=== PATIENT | female | born 1975 | race Caucasian/White ===

== ENCOUNTER 2019-09-08 23:59 | Emergency (ER) | payer MEDICAID ==
[~2019-09-08] VITALS: Ht 157.5 cm; Wt 66.7 kg
[2019-09-09 00:15] VITALS: BP_SYST 101
[2019-09-09] MEDS ORDERED: LIDOCAINE 1%, 20 ML MDV 20 ML ONE (00:58)
[2019-09-09] MEDS ORDERED: KETOROLAC TROMETHAMINE 60 MG/2 ML VIAL IM ONE ×2 (01:00→01:14)
[2019-09-09] MEDS ORDERED: IBUPROFEN 800 MG TABLET PO ONE (01:00)
[2019-09-09] MEDS ORDERED: IBUPROFEN 800 MG TABLET ONE (01:20)
[2019-09-09 01:25] VITALS: BP_SYST 112
== END 2019-09-09 01:25 | disposition home or self-care (01) ==
LOC: SED 23:59
DX: H00.014 Hordeolum externum left upper eyelid (principal)
CPT/HCPCS: 67700; 99284; J2001; J1885